=== PATIENT | female | born 1950 | race Caucasian/White ===

== ENCOUNTER 2017-07-09 10:38 | Emergency (ER) | payer MEDICARE, OTHER ==
[~2017-07-09] VITALS: Ht 167.6 cm; Wt 84.0 kg
[~2017-07-09 10:38] MED LIST: ASPI-1264 PO; ATOR40TA3 PO; BACL10TA PO; MECL-111 PO; METO-395 PO; NITR0.4T48 SL; NORCO PO; PANT-47 PO; PHEN16.234 PO; SIME125C43 PO
[2017-07-09] MEDS ORDERED: ketorolac trometh inj. 60 MG/2 ML VIAL IM ONE (11:00)
[2017-07-09] MEDS ORDERED: orphenadrine citrate 60mg/2ml inj. IM ONE (11:00)
[2017-07-09] MEDS ORDERED: orphenadrine citrate 60mg/2ml inj. ONE ×2 (11:12→11:29)
[2017-07-09] MEDS ORDERED: ketorolac tromethamine 15mg/ml inj. ONE (11:12)
[2017-07-09] MEDS ORDERED: ketorolac tromethamine 15mg/ml inj. IM ONE (11:35)
[2017-07-09] MEDS ORDERED: morphine 4 MG/ML inj SYRINge IV ONE (12:00)
[2017-07-09] MEDS ORDERED: oxyCODONE/APAP 5-325mg tablet PO ONE (12:00)
[2017-07-09] MEDS ORDERED: oxyCODONE/APAP 5-325mg tablet ONE (12:51)
[2017-07-09] MEDS ORDERED: morphine 4 MG/ML inj SYRINge ONE (12:52)
[2017-07-09 12:57] VITALS: BP 122/70
== END 2017-07-09 14:29 | disposition home or self-care (01) ==
LOC: ER 10:39
DX: G89.29 Other chronic pain (principal); M54.5 Low back pain; I10 Essential (primary) hypertension; E11.9 Type 2 diabetes mellitus without complications; Z56.0 Unemployment, unspecified; Z88.0 Allergy status to penicillin; Z79.82 Long term (current) use of aspirin; Z79.899 Other long term (current) drug therapy
CPT/HCPCS: 72100; 96372; 96374; 99284; J1885; J2270; J2360